=== PATIENT | female | born 1960 | race Caucasian/White ===

== ENCOUNTER → 2023-08-16 14:19 | Outpatient (CLI) | payer BC, SELFPAY ==
--- NOTE | 2023-08-16 14:22 | DI.RAD.S_ITS ---
PROCEDURE: XR DEXA AXIAL SKELETON INDICATIONS: single thyroid nodule Menopausal state COMPARISON: None. FINDINGS: Lumbar Spine: Bone mineral density 0.969 g/cm2, T score -1.0. Left Hip: Bone mineral density 0.810 g/cm2, T score -1.1. Left Femoral Neck: Bone mineral density 0.596 g/cm2, T score -2.3. Right Hip: Bone mineral density of 0.742 g/cm2, T score -1.6. Right Femoral Neck: Bone mineral density 0.621 g/cm2, T score -2.1. Fracture Risk Calculation (when applicable): 10-year fracture risk of a major osteoporotic fracture 11% and of a hip fracture 1.9%. (T score greater or equal to -1.0 to: NORMAL) (T score from -1.1 to -2.4: OSTEOPENIA) (T score less than or equal to -2.5: OSTEOPOROSIS) IMPRESSION: Osteopenia Follow-up guidelines as follows: Osteoporosis: Consider a repeat DEXA and Vertebral Fracture Assessment (VFA) exam in 2 years or sooner if medically necessary, to reassess this patient's status. Osteopenia: Consider a repeat DEXA in 2-3 years to reassess this patient's status, or if there is a new clinical indication. Normal: Consider a repeat DEXA in 5 years or sooner, or if there is a new clinical indication. All treatment decisions require clinical judgment and consideration of individual patient factors, including patient preferences, comorbidities, previous drug use, risk factors not captured in the FRAX model (e.g., frailty, falls, vitamin D deficiency, increased bone turnover, interval significant decline in bone density ) and possible under- or over-estimation of fracture risk by FRAX. In addition, the NOF Guide recommends that FDA-approved medical therapies be considered in postmenopausal women and men age >= 50 years with a: * Hip or vertebral (clinical or morphometric) fracture * T-score of <=-2.5 at the spine or hip * Ten-year fracture probability by FRAX of >= 3% for hip fracture or >=20% for major osteoporotic fracture. People with diagnosed cases of osteoporosis or at high risk for fracture should have regular bone mineral density tests. For patients eligible for Medicare, routine testing is allowed once every 2 years. The testing frequency can be increased to one year for patients who have rapidly progressing disease, those who are receiving or discontinuing medical therapy to restore bone mass, or have additional risk factors. Dictated by: Hieu Cartagena M.D. on 08/16/2023 at 16:50 Approved by: Hieu Cartagena M.D. on 08/16/2023 at 16:52
--- NOTE | 2023-08-16 14:22 | DI.US.S_ITS ---
PROCEDURE: US THYROID INDICATIONS: single thyroid nodule Menopausal state TECHNIQUE: Real-time scanning was performed of the thyroid gland, with image documentation. COMPARISON: None. FINDINGS: Thyroid: Right lobe measures 5.1 x 1.4 x 1.3 cm. Left lobe measures 4.0 x 1.4 x 1.4 cm. Isthmus is 0.3 cm thick. Echotexture is homogeneous. Nodule number: 1 Location: Right superior Size: 1.2 x 0.6 x 0.7 cm Composition: Solid Echogenicity: Hypoechoic Shape: wider than tall. Margins: Irregular Echogenic foci: Punctate Total points: 9 ACR TI-RADS category: Highly suspicious IMPRESSION: Highly suspicious 1.2 cm right thyroid nodule. Recommend ultrasound-guided fine-needle aspiration for further evaluation. ACR TI-RADS definitions and recommendations: TI-RADS 1 (benign): 0 points. FNA not needed. TI-RADS 2 (not suspicious): 2 points. FNA not needed. TI-RADS 3 (mildly suspicious): 3 points. * FNA if 2.5 cm or larger, follow up if 1.5 cm or larger (at 1, 3, and 5 years). TI-RADS 4 (moderately suspicious): 4-6 points. * FNA if 1.5 cm or larger, follow up if 1 cm or larger (at 1, 2, 3, and 5 years). TI-RADS 5 (highly suspicious): 7 points or more. * FNA if 1 cm or larger, follow up if 0.5 cm or larger (every year for 5 years). Approved by: Jose L Hilliard M.D. on 08/16/2023 at 16:42
== END ==
PROVIDERS: PCP Nurse Practitioner Family; Referring Provider Nurse Practitioner Family; Visit Provider Nurse Practitioner Family
DX: E04.1 Nontoxic single thyroid nodule (principal); M85.89 Other specified disorders of bone density and structure, multiple sites; N95.1 Menopausal and female climacteric states
CPT/HCPCS: 76536; 77080

== ENCOUNTER → 2023-08-17 10:02 | Outpatient (CLI) | payer BC, SELFPAY ==
[2023-08-17 19:58] LABS: Add Manual Diff / Slide Review NO; Basophils Absolute Auto 0 /uL (0-100); Basophils Percent Auto 0.5 % (0-2); Eosinophils Absolute Auto 100 /uL (0-450); Hematocrit 41.1 % (36-46); Hemoglobin 13.8 g/dL (12.0-16.0); Lymphocytes Absolute Auto 1400 /uL (1100-4500); Lymphocytes Percent Auto 23.2 % (25-40); Mean Corpuscular HGB Conc 33.5 % (30-36); Mean Corpuscular Hemoglobin 30.2 PG (26-34); Mean Corpuscular Volume 90.2 fL (80-100); Monocytes Absolute Auto 500 /uL (0-900); Monocytes Percent Auto 8.3 % (3-14); Neutrophils Absolute Auto 3900 /uL (1500-7000); Platelet Count 241 X10^3/uL (150-400); Red Blood Cell Count 4.55 X10^6/uL (4.0-5.2); Red Cell Distribution Width 14.1 % (11.6-14.8)
[2023-08-17 20:02] LABS: Alanine Aminotransferase 16 IU/L (<35); Albumin 4.1 g/dL (3.5-5.0); Albumin Globulin Ratio 1.6 (1.0-2.8); Alkaline Phosphatase 70 U/L (38-126); Aspartate Aminotransferase 23 IU/L (14-36); BUN Creatinine Ratio 19.6 (6-22); Bilirubin Total 0.7 mg/dL (0.2-1.3); Blood Urea Nitrogen 19 mg/dL (7-17); Calcium 9.2 mg/dL (8.4-10.2); Carbon Dioxide 26 mmol/L (22-32); Chloride 108 mmol/L (98-107); Estimated Glomerular Filt Rate > 60 mL/min (>60); Globulin 2.6 g/dL (1.7-4.1); Glucose 92 mg/dL (80-110); HEMOLYSIS < 15 (0-50); Potassium 4.2 mmol/L (3.4-5.1); Sodium 140 mmol/L (137-145); Total Protein 6.7 g/dL (6.3-8.2)
[2023-08-17 20:06] LABS: HEMOLYSIS < 15 (0-50); Iron 142 ug/dL (37-170)
[2023-08-17 20:21] LABS: Percent Iron Saturation 44 % (15-50); Total Iron Binding Capacity 324 ug/dL (265-497); Transferrin 251 mg/dL (206-381)
[2023-08-17 21:13] LABS: Folate 8.1 ng/mL (2.76-20.0); Vitamin B12 356 pg/mL (239-931)
== END ==
PROVIDERS: PCP Nurse Practitioner Family; Visit Provider Nurse Practitioner Family
DX: Z13.1 Encounter for screening for diabetes mellitus (principal); Z13.220 Encounter for screening for lipoid disorders; E04.1 Nontoxic single thyroid nodule; D64.9 Anemia, unspecified; F41.1 Generalized anxiety disorder
CPT/HCPCS: 80053; 80061; 82607; 82746; 83540; 83550; 85025

== ENCOUNTER → 2024-01-24 12:34 | Outpatient (CLI) | payer BC, SELFPAY ==
[2024-01-26 09:36] LABS: Hepatitis B Surf Ab Qualitativ Equivocal (.)
== END ==
PROVIDERS: PCP Physician Assistant; Visit Provider Physician Assistant
DX: Z71.84 Encounter for health counseling related to travel (principal)
CPT/HCPCS: 86706